=== PATIENT | male | born 1990 | race American Indian/Alaskan Native ===

== ENCOUNTER 2019-08-15 15:47 | Emergency (ER) | payer SELFPAY ==
--- NOTE | 2019-08-15 15:57 | Emergency Department Report ---
Blank Doc - Documentation Documentation: 29-year-old male that presents with CP, SOB, fever, chills, and abdominal pain. This initial assessment/diagnostic orders/clinical plan/treatment(s) is/are subject to change based on patient's health status, clinical progression and re- assessment by fellow clinical providers in the ED. Further treatment and workup at subsequent clinical providers discretion. Patient/guardians urged not to elope from the ED as their condition may be serious if not clinically assessed and managed. Initial orders include: 1- Patient sent to Main for further evaluation and treatment 2- labs 3- EKG 4- CXR
[2019-08-15 16:32] LABS: Basophils % (Auto) 0.6 % (0.0-1.8); Eosinophils % (Auto) 0.2 % (0.0-4.3); Hematocrit 45.3 % (35.5-45.6); Lymphocytes # (Auto) 1.5 K/mm3 (1.2-5.4); Lymphocytes % (Auto) 20.4 % (13.4-35.0); Mean Corpuscular HGB Conc 33 % (32-34); Mean Corpuscular Volume 91 fl (84-94); Monocytes # (Auto) 1.1 K/mm3 (0.0-0.8); Monocytes % (Auto) 14.6 % (0.0-7.3); Platelet Count 265 K/mm3 (140-440); Red Blood Count 4.96 M/mm3 (3.65-5.03); Red Cell Distribution Width 14.1 % (13.2-15.2)
[2019-08-15 16:58] LABS: Alanine Aminotransferase 55 units/L (7-56); Albumin 4.4 g/dL (3.9-5); BUN/Creatinine Ratio 11; Blood Urea Nitrogen 16 mg/dL (9-20); Calcium 9.4 mg/dL (8.4-10.2); Hemolysis Index 28
--- NOTE | 2019-08-15 17:33 | XRay Report ---
CHEST 2 VIEWS INDICATION / CLINICAL INFORMATION: Chest Pain. COMPARISON: None available. FINDINGS: SUPPORT DEVICES: None. HEART / MEDIASTINUM: No significant abnormality. LUNGS / PLEURA: No significant pulmonary or pleural abnormality. No pneumothorax. ADDITIONAL FINDINGS: No significant additional findings. IMPRESSION: 1. No acute findings. Signer Name: Lazaro Holliday MD Signed: 08/15/2019 5:29 PM Workstation Name: [id number]
[2019-08-15 21:29] LABS: Bilirubin,Urine NEG (Negative); Blood,Urine NEG (Negative); Color,Urine Amber (Yellow); Mucus,Urine FEW /HPF
[2019-08-15 21:31] LABS: Protein,Urine >500 mg/dL (Negative)
[2019-08-15] MEDS ORDERED: MORPHINE 4 MG/1 ML INJ IV ONE (21:36)
[2019-08-15] MEDS ORDERED: ONDANSETRON 4 MG/2 ML INJ IV ONE (21:36)
--- NOTE | 2019-08-15 21:42 | Emergency Department Report ---
ED Chest Pain HPI - General Chief Complaint: Dyspnea/Respdistress Stated Complaint: CHEST PAIN/THERESA Time Seen by Provider: 08/15/19 15:55 Source: patient Mode of arrival: Ambulatory Limitations: No Limitations - History of Present Illness Initial Comments: Mr. Contreras is a healthy gentleman with history of tobacco and marijuana abuse who presents with 2 days of left-sided chest pain and left upper abdominal pain. 8 out of 10. He felt as if someone punched him in the chest and abdomen. Positive shortness of breath. He has subjective fever subjective chills. Recent travel includes a drive to [place] 3 weeks ago. No recent history of pneumonia or lung disease. MD Complaint: chest pain, other (left upper quadrant abdominal pain) -: Gradual, days(s) (2) Onset: during rest Pain Location: left chest Pain Radiation: abdomen Severity: moderate Severity scale (0 -10): 8 Consistency: constant Improves With: nothing Worsens With: nothing, inspiration Other Symptoms: cough - Related Data Previous Rx's Medication Instructions Recorded Last Taken Type ALBUTEROL Inhaler (OR & NICU) 2 puff IH QID PRN #8.5 gram 08/16/19 Unknown Rx [ProAir HFA Inhaler] Doxycycline Hyclate [Doxycycline 100 mg PO Q12HR 7 Days #14 tab 08/16/19 Unknown Rx Hyclate TAB] predniSONE [Deltasone] 3 tab PO QDAY 3 Days #9 tab 08/16/19 Unknown Rx Allergies Allergy/AdvReac Type Severity Reaction Status Date / Time No Known Allergies Allergy Unverified 08/15/19 20:43 Heart Score - HEART Score History: Slightly suspicious EKG: Normal Age: < 45 Risk factors: 1-2 risk factors Troponin: < normal limit HEART Score: 1 ED Review of Systems ROS: Stated complaint: CHEST PAIN/THERESA Other details as noted in HPI Comment: All other systems reviewed and negative Constitutional: chills, fever, malaise Respiratory: cough, shortness of breath Cardiovascular: chest pain Gastrointestinal: abdominal pain ED Past Medical Hx - Past Medical History Previous Medical History?: No - Surgical History Past Surgical History?: Yes Additional Surgical History: Right nephrectomy - Social History Smoking Status: Current Every Day Smoker Substance Use Type: Marijuana - Medications Home Medications: Home Medications Medication Instructions Recorded Confirmed Last Taken Type ALBUTEROL Inhaler (OR & NICU) 2 puff IH QID PRN #8.5 gram 08/16/19 Unknown Rx [ProAir HFA Inhaler] Doxycycline Hyclate [Doxycycline 100 mg PO Q12HR 7 Days #14 tab 08/16/19 Unknown Rx Hyclate TAB] predniSONE [Deltasone] 3 tab PO QDAY 3 Days #9 tab 08/16/19 Unknown Rx ED Physical Exam - General Limitations: No Limitations General appearance: alert, in no apparent distress, other (speaking fullsentences with mild work of breathing appears uncomfortable) - Head Head exam: Present: atraumatic, normocephalic - Eye Eye exam: Present: normal appearance - ENT ENT exam: Present: mucous membranes moist - Neck Neck exam: Present: normal inspection, full ROM - Respiratory Respiratory exam: Present: wheezes, rales, rhonchi, decreased breath sounds - Cardiovascular Cardiovascular Exam: Present: normal rhythm, tachycardia, normal heart sounds. Absent: systolic murmur, diastolic murmur, rubs, gallop - GI/Abdominal GI/Abdominal exam: Present: soft, normal bowel sounds. Absent: distended, guarding, rebound - Extremities Exam Extremities exam: Present: normal inspection - Neurological Exam Neurological exam: Present: alert, oriented X3 - Psychiatric Psychiatric exam: Present: normal affect, normal mood - Skin Skin exam: Present: warm, dry, intact, normal color. Absent: rash ED Course Vital Signs 08/15/19 08/15/19 08/15/19 15:55 19:05 19:35 Temperature 100.6 F H 100.4 F H 99.7 F H Pulse Rate 125 H 132 H 114 H Pulse Rate [ Anterior Throughout] Respiratory 24 30 H 17 Rate Respiratory Rate [Anterior Throughout] Blood Pressure 144/87 Blood Pressure 141/83 [Left] O2 Sat by Pulse 93 95 95 Oximetry 08/15/19 08/15/19 08/15/19 20:00 20:30 21:15 Temperature Pulse Rate 110 H 119 H 111 H Pulse Rate [ Anterior Throughout] Respiratory 19 22 17 Rate Respiratory Rate [Anterior Throughout] Blood Pressure 129/98 136/81 134/86 Blood Pressure [Left] O2 Sat by Pulse 97 96 98 Oximetry 08/15/19 08/15/19 08/15/19 22:09 22:15 23:15 Temperature Pulse Rate 108 H 107 H Pulse Rate [ Anterior Throughout] Respiratory 18 16 25 H Rate Respiratory Rate [Anterior Throughout] Blood Pressure 141/85 138/84 Blood Pressure [Left] O2 Sat by Pulse 95 93 Oximetry 08/15/19 08/15/19 23:31 23:40 Temperature Pulse Rate Pulse Rate [ 110 H Anterior Throughout] Respiratory 18 Rate Respiratory 20 Rate [Anterior Throughout] Blood Pressure Blood Pressure [Left] O2 Sat by Pulse Oximetry ED Medical Decision Making - Lab Data Result diagrams: 08/15/19 16:08 08/15/19 16:08 Laboratory Results - last 24 hr 08/15/19 08/15/19 08/15/19 16:08 16:08 16:08 WBC 7.4 RBC 4.96 Hgb 15.0 Hct 45.3 MCV 91 MCH 30 MCHC 33 RDW 14.1 Plt Count 265 Lymph % (Auto) 20.4 Jackson % (Auto) 14.6 H Eos % (Auto) 0.2 Baso % (Auto) 0.6 Lymph # 1.5 Jackson # 1.1 H Eos # 0.0 Baso # 0.0 Seg Neutrophils % 64.2 Seg Neutrophils # 4.8 Sodium 138 Potassium 4.2 Chloride 101.6 Carbon Dioxide 23 Anion Gap 18 BUN 16 Creatinine 1.5 Estimated GFR > 60 BUN/Creatinine Ratio 11 Glucose 122 H Lactic Acid 1.70 Calcium 9.4 Total Bilirubin 0.70 AST 49 H ALT 55 Alkaline Phosphatase 123 Troponin T < 0.010 Total Protein 8.4 H Albumin 4.4 Albumin/Globulin Ratio 1.1 Lipase 18 Urine Color Urine Turbidity Urine pH Ur Specific [place] Urine Protein Urine Glucose (UA) Urine Ketones Urine Blood Urine Nitrite Urine Bilirubin Urine Urobilinogen Ur Leukocyte Esterase Urine WBC (Auto) Urine RBC (Auto) U Epithel Cells (Auto) Urine Mucus Influenza A (Rapid) Influenza B (Rapid) 08/15/19 08/15/19 21:09 Unknown WBC RBC Hgb Hct MCV MCH MCHC RDW Plt Count Lymph % (Auto) Jackson % (Auto) Eos % (Auto) Baso % (Auto) Lymph # Jackson # Eos # Baso # Seg Neutrophils % Seg Neutrophils # Sodium Potassium Chloride Carbon Dioxide Anion Gap BUN Creatinine Estimated GFR BUN/Creatinine Ratio Glucose Lactic Acid Calcium Total Bilirubin AST ALT Alkaline Phosphatase Troponin T Total Protein Albumin Albumin/Globulin Ratio Lipase Urine Color Lorraine Urine Turbidity Clear Urine pH 5.0 Ur Specific [place] 1.033 H Urine Protein >500 Urine Glucose (UA) Neg Urine Ketones Tr Urine Blood Neg Urine Nitrite Neg Urine Bilirubin Neg Urine Urobilinogen 2.0 Ur Leukocyte Esterase Neg Urine WBC (Auto) 1.0 Urine RBC (Auto) 2.0 U Epithel Cells (Auto) < 1.0 Urine Mucus Few Influenza A (Rapid) Negative Influenza B (Rapid) Negative - EKG Data 08/15/19 21:40 EKG obtained 1603 Sinus tachycardia rate 115 beats a minute normal axis normal intervals no ST-T signs of ischemia - Radiology Data Radiology results: report reviewed AP portable chest no acute findings, CT angio chest no acute findings, CT abdomen and pelvis no acute findings evidence of nephrectomy - Medical Decision Making Mr. Contreras presents with fever shortness breath wheezing here in emergency department. Abdominal pain possibly due to cough or severe work of breathing. Respiratory status improved with treatment provided in the emergency department. Tachycardia resolved after IV fluid therapy and further treatment. Strongly recommended smoking cessation. Due to severe symptoms, antibiotics are indicate d. Prescribed albuterol MDI, doxycycline, prednisone. He is now appropriate for discharge. Pneumonia, pulmonary embolism, pneumothorax, acute intra-abdominal inflammatory process have all been ruled out with extensive workup in the emergency department. Critical care attestation.: If time is entered above; I have spent that time in minutes in the direct care of this critically ill patient, excluding procedure time. ED Disposition Clinical Impression: Acute bronchitis, SIRS (systemic inflammatory response syndrome) Disposition: DC-01 TO HOME OR SELFCARE Is pt being admited?: No Does the pt Need Aspirin: No Condition: Stable Instructions: Acute Bronchitis (ED), How to Stop Smoking (ED) Prescriptions: predniSONE [Deltasone] 3 tab PO QDAY 3 Days #9 tab Doxycycline Hyclate [Doxycycline Hyclate TAB] 100 mg PO Q12HR 7 Days #14 tab ALBUTEROL Inhaler (OR & NICU) [ProAir HFA Inhaler] 2 puff IH QID PRN #8.5 gram PRN Reason: Shortness Of Breath Referrals: AVERY MATOS MD [Primary Care Provider] - 3-5 Days Forms: Work/School Release Form(ED)
--- NOTE | 2019-08-15 22:35 | Cat Scan Report ---
CT ANGIO CHEST INDICATION / CLINICAL INFORMATION: left chest pain hypoxia dyspnea. TECHNIQUE: Axial CT images were obtained after injection of IV contrast using CTA protocol. 3 plane MIP / 3D rec onstructions were produced. All CT scans at this location are performed using CT dose reduction for A ASHLEY by means of automated exposure control. COMPARISON: None available. FINDINGS: Following the administration of intravenous contrast, no filling defects are seen in the main pulmona ry arteries or their branches. No significant parenchymal abnormality is seen in the lungs. No enlarg ed mediastinal or hilar lymph nodes are identified. No significant skeletal abnormality is seen. IMPRESSION: No evidence of pulmonary embolus. Negative CTA of the chest Signer Name: Rafi Sidhu MD FACR Signed: 08/15/2019 10:31 PM Workstation Name: [id number]
--- NOTE | 2019-08-15 22:44 | Cat Scan Report ---
CT abdomen pelvis w con INDICATION / CLINICAL INFORMATION: LUQ abd pain dyspnea. TECHNIQUE: All CT scans at this location are performed using CT dose reduction for ALARA by means of automated e xposure control. COMPARISON: None available. FINDINGS: No free fluid is seen in the abdomen. The right kidney is absent. The left kidney is unremarkable in appearance. The liver, spleen, pancreas, adrenal glands and great vessels are normal. No enlarged ret roperitoneal or mesenteric lymph nodes are seen. In the pelvis, no free fluid is seen. No enlarged lymph nodes are identified. The bladder is minimall y distended. The appendix is not well visualized. IMPRESSION: 1. Absent right kidney 2. No acute findings Signer Name: Rafi Sidhu MD FACR Signed: 08/15/2019 10:40 PM Workstation Name: [id number]
[2019-08-15] MEDS ORDERED: predniSONE 20 MG TAB PO ONE (23:09)
[2019-08-15] MEDS ORDERED: IPRATROPIUM/ALBUTEROL SULFATE 3 ML AMPUL.NEB IH ONE (23:09)
[2019-08-15] MEDS ORDERED: ACETAMINOPHEN 500 MG TAB PO ONE (23:10)
[2019-08-15] MEDS ORDERED: SODIUM CHLORIDE 0.9% 1000 ML 1,000 ML IV ONE (23:10)
[2019-08-16 01:46] VITALS: BP 146/64
== END 2019-08-16 01:45 | disposition home or self-care (01) ==
LOC: ED 15:47
DX: J20.9 Acute bronchitis, unspecified (principal); R65.10 Systemic inflammatory response syndrome (SIRS) of non-infectious origin without acute organ dysfunction; F17.200 Nicotine dependence, unspecified, uncomplicated; F12.10 Cannabis abuse, uncomplicated; Z79.899 Other long term (current) drug therapy
CPT/HCPCS: 36415; 71046; 71275; 74177; 80053; 81001; 82140; 83690; 84484; 85025; 87040; 87400; 93005; 93010; 94640; 96374; 96375; 99285; J2270; J2405; J7030; J7512; Q9967; 94644